=== PATIENT | male | born 1975 | race Caucasian/White ===

== ENCOUNTER 2020-10-18 14:10 | Emergency (ER) | payer OTHER ==
[~2020-10-18] VITALS: Ht 172.7 cm; Wt 70.0 kg
[2020-10-18 14:22] VITALS: BP 113/85
== END 2020-10-18 16:56 | disposition home or self-care (01) ==
LOC: ED 14:30
DX: H16.011 Central corneal ulcer, right eye (principal); H20.051 Hypopyon, right eye
CPT/HCPCS: 99283